=== PATIENT | female | born 1940 | race Caucasian/White ===

== ENCOUNTER 2022-06-08 11:34 | Emergency (ER) | payer MEDICARE, OTHER, SELFPAY ==
--- NOTE | 2022-06-08 11:49 | ED.GENADULT ---
HPI - General Adult General Chief complaint: Urogenital-Female Stated complaint: Poss uti Source: patient and RN notes reviewed History of Present Illness HPI narrative: 81-year-old male presents to urgent care stating she thinks she has a UTI. Patient reports polyuria and mid lower abdominal pressure times 3-4 days. Patient reports a discomfort with urination. Patient denies any flank pain, back pain, fevers chills, vomiting, diarrhea, chest pain, or shortness of breath. Some parts of this dictation were generated by voice recognition software and may contain typographical and/or grammatical inaccuracies. Related Data Allergies Allergy/AdvReac Type Severity Reaction Status Date / Time No Known Allergies Allergy Unverified 06/08/22 11:40 Review of Systems Review of Systems: Pertinent positives and pertinent negatives per HPI. [facility] Family History Family History (Updated 02/11/18 @ 10:29 by DOCTOR UNKNOWN) Grandparent Cerebrovascular accident, Onset Age: 86 Family history of pancreatic cancer, Onset Age: 6 Family history of emphysema, Onset Age: 80 Father Cerebrovascular accident, Onset Age: 88 Mother Family history of pancreatic cancer, Onset Age: 83 Sibling Family history of renal cell carcinoma, Onset Age: 65 Social History Social History Smoking status: Never smoker Alcohol intake: never Comments At the time of my signature, I reviewed and agree with the nursing past medical, surgical, social, and family history. There is no relevant family history pertinent to the patient complaint. Exam Narrative: GENERAL: This is a well-nourished, well-developed patient, in no apparent distress. HEAD: normocephalic, atraumatic. EYES: PERRL. Sclera clear/white. Vision is grossly intact. EARS: External ears normal, auditory canals clear and without drainage, TMs normal without perforation. Hearing grossly intact. NECK: Neck supple, non-tender without lymphadenopathy, masses or thyromegaly. CARDIOVASCULAR: Regular rate and rhythm without murmurs, gallops, or rubs. RESPIRATORY: Clear to auscultation. Breath sounds equal bilaterally. No wheezes, rales, or rhonchi. GASTROINTESTINAL: Abdomen soft, non-tender, nondistended. Bowel sounds are active. No hepato-splenomegaly, or palpable masses. No guarding. SKIN: warm, intact with no suspicious lesions or rash, good texture and turgor. NEURO: awake, alert, and oriented to person, place and time. There were no obvious focal neurologic abnormalities. Course Course Level of Care: Express Care Visit Vital Signs Vital signs: Vital Signs Temperature 98.1 F 06/08/22 11:52 Pulse Rate 73 06/08/22 11:52 Respiratory Rate 18 06/08/22 11:52 Blood Pressure 133/67 06/08/22 11:52 Pulse Oximetry 99 06/08/22 11:52 Temperature 98.1 F 06/08/22 11:52 Pulse Rate 73 06/08/22 11:52 Respiratory Rate 18 06/08/22 11:52 Blood Pressure 133/67 06/08/22 11:52 Pulse Oximetry 99 06/08/22 11:52 Reviewed Medical Decision Making MDM Narrative Medical decision making narrative: Take antibiotics as directed. He plenty of fluids. follow-up with your primary care physician in 2-5 days. Go to the emergency depart with any new or worsening symptoms. Differential Diagnosis Differential Diagnosis: UTI, dysuria, pyelonephritis Vital Signs Vital Signs: Vital Signs Temperature 98.1 F 06/08/22 11:52 Pulse Rate 73 06/08/22 11:52 Respiratory Rate 18 06/08/22 11:52 Blood Pressure 133/67 06/08/22 11:52 Pulse Oximetry 99 06/08/22 11:52 Temperature 98.1 F 06/08/22 11:52 Pulse Rate 73 06/08/22 11:52 Respiratory Rate 18 06/08/22 11:52 Blood Pressure 133/67 06/08/22 11:52 Pulse Oximetry 99 06/08/22 11:52 Lab Data Lab results reviewed: Yes I reviewed the patient's lab results. Labs: Urine Glucose Negative Ref
[2022-06-08 11:52] VITALS: BP 133/67; PULSE 73; RESP 18; TEMP 36.7; O2SAT 99
== END 2022-06-08 12:15 | disposition home or self-care (01) ==
PROVIDERS: Emergency Provider Nurse Practitioner Family; PCP Internal Medicine
DX: N39.0 Urinary tract infection, site not specified (principal)
CPT/HCPCS: 81003; 87086; 99203; G0463